=== PATIENT | male | born 1965 | race Caucasian/White ===

== ENCOUNTER 2021-05-08 09:28 | Emergency (ER) | payer MEDICAID ==
[~2021-05-08] VITALS: Ht 170.2 cm; Wt 59.0 kg
--- NOTE | 2021-05-08 10:18 | RAD ---
XR CHEST 2V History: Reason: Air coming out of past chest tube hole- PNEUMO X 3 WEEKS AGO Comparison: None. Findings: The cardiomediastinal silhouette is normal. There is mild parenchymal scarring in the lung bases. No acute airspace disease is seen. 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 There is minimal left lateral chest wall subcutaneous air. There is probably a small left pneumothorax most apparent at the left costophrenic angle. No pleural effusion is seen. There is no acute bone abnormality. IMPRESSION: There is probably a small left pneumothorax most apparent at the left costophrenic angle. There is bu llous emphysema in the upper lungs limiting evaluation for pneumothorax at the left lung apex. Compar ángela to prior studies would be useful. Electronically signed by: Ga Domínguez MD (05/08/2021 10:16 AM) [id number]
--- NOTE | 2021-05-08 10:54 | PHYS DOC ---
Past History Past Surgical History: Hip Replacement Additional Past Surgical Histo: chest tuube left. Alcohol Use: None Adult General Chief Complaint Chief Complaint: OTHER COMPLAINTS HPI HPI Patient is a [age] year old [sex] who presents with [] Review of Systems Review of Systems Fourteen body systems of review of systems have been reviewed. See HPI for pertinent positives and negative responses, other gongora all other systems are negative, non-pertinent or non-contributory Allergies Allergies Allergies Coded Allergies Type Severity Reaction Last Updated Verified No Known Drug Allergies 05/08/21 No Physical Exam Physical Exam Constitutional: Well developed, thin and appears malnourished, no acute distress, non-toxic appearance. HENT: Normocephalic, atraumatic, bilateral external ears normal, oropharynx moist, no oral exudates, nose normal. Eyes: PERRLA, EOMI, conjunctiva normal, no discharge. Neck: Normal range of motion, no tenderness, supple, no stridor. Cardiovascular: Heart rate regular, sinus rhythm, no murmurs rubs or gallops Lungs & Thorax: No respiratory distress or accessory muscle use noted, there is decreased breath sounds of left lower lung versus contralateral side, there is noticeable left mid axillary line at level of fifth intercostal linear incision consistent with recent chest tube placement and subsequent removal with palpable air present on expiration/forced expiration Abdomen: Bowel sounds normal, soft, no tenderness, no masses, no pulsatile masses. Nonsurgical abdomen, no peritoneal signs Skin: Warm, dry, no erythema, no rash. Back: No tenderness, no CVA tenderness. Extremities: No tenderness, no cyanosis, no clubbing, ROM intact, no edema. Neurologic: Alert and oriented X 3, grossly normal motor & sensory function, no focal deficits noted. Psychologic: Affect normal, judgement normal, mood normal. Current Patient Data Vital Signs Vital Signs Date Time Temp Pulse Resp B/P (MAP) Pulse Ox O2 Delivery O2 Flow Rate FiO2 05/08/21 09:43 98.5 95 16 98/78 98 Room Air EKG EKG [] Radiology/Procedures Radiology/Procedures XR CHEST 2V History: Reason: Air coming out of past chest tube hole- PNEUMO X 3 WEEKS AGO Comparison: None. Findings: The cardiomediastinal silhouette is normal. There is mild parenchymal scarring in the lung bases. No acute airspace disease is seen. 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 There is minimal left lateral chest wall subcutaneous air. There is probably a small left pneumothorax most apparent at the left costophrenic angle. No pleural effusion is seen. There is no acute bone abnormality. IMPRESSION: There is probably a small left pneumothorax most apparent at the left costophrenic angle. 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 Comparison to prior studies would be useful. Electronically signed by: Ga Domínguez MD (05/08/2021 10:16 AM) [id number] Heart Score C/O Chest Pain: No Risk Factors: Risk Factors: DM, Current or recent (<one month) smoker, HTN, HLP, family history of CAD, obesity. Risk Scores: Risk Factors: DM, Current or recent (<one month) smoker, HTN, HLP, family history of CAD, obesity. Course & Med Decision Making Course & Med Decision Making ABCs unremarkable. I disclosed entirety of ER findings and discussed most likely diagnosis of sequelae of recent chest tube removal. Other diagnoses were discussed with patient such as pneumothorax, ACS, and other potentially life- threatening diagnoses but all deemed less likely causes of patient's presentation. Given complicated case, I contacted on-call right of way maintenance supervisor at [facility] and spoke with attending regarding patient presentation, vitals, physical exam findings and chest x-ray findings. It was recommended that no intervention was necessary. Project Control Analyst recommended application of Vaseline gauze with a subsequent occlusive dressing and close outpatient follow-up with strict return precautions should small pneumothorax worsen etc. I disclosed entirety of conversation with patient, plan of care discussed at length with need for close outpatient follow-up to review today's ER visit stressed. He was amenable as he reports feeling at baseline health and baseline respiratory function just concerned about palpable air on the left side of his chest wall. Strict return precautions were also discussed at length with good understanding verbalized by patient. Patient voiced understanding and agreement with the plan. Patient knows to come back for repeat evaluation if concerning signs or symptoms present prior to outpatient follow-up. Hemodynamically stable, ambulatory and well-appearing at time of disposition. Dragon Disclaimer Dragon Disclaimer This electronic medical record was generated, in whole or in part, using a voice recognition dictation system. Departure Departure: Impression: Primary Impression: History of chest tube placement Additional Impression: Recurrent pneumothorax after chest tube removed Disposition: HOME / SELF CARE / HOMELESS Condition: STABLE Referrals: PCP,JAMESON (PCP) Additional Instructions: As discussed prior to ER departure, there were no emergent or surgical findings based on your visit today. Your physical exam and chest x-ray were reviewed with our on-call right of way maintenance supervisor/lung doctor. You are at your baseline breathing status and your vitals were fine. You are suffering complications from recently placed and subsequently removed chest tube. Given that you are oxygenating and ventilating well, the right of way maintenance supervisor recommended we place Vaseline gauze on your incision site and cover with an occlusive dressing. You are to use his contact information below to call and schedule appointment for repeat evaluation within the upcoming 5 to 10 days time. If any concerning signs or symptoms present prior to outpatient follow-up please do not hesitate to come back for repeat evaluation. As disclosed, we do not have any lung doctors onsite here at [facility] but they are available at [facility] and [facility] facilities. It was a pleasure to take care of you and I wish you the best going forward Dr. Wilner Stephen (right of way maintenance supervisor/lung doctor) Address: [address], [place] [address] Problem Qualifiers ROSIBEL CALIXTO DO May 08, 2021 10:54
[2021-05-08 11:00] VITALS: BP 98/76
== END 2021-05-08 11:01 | disposition home or self-care (01) ==
LOC: ER 09:28
DX: J95.811 Postprocedural pneumothorax (principal)
CPT/HCPCS: 71046; 99283